=== PATIENT | female | born 1995 | race African-American/Black ===

== ENCOUNTER 2019-03-02 20:46 | Inpatient (IN) ==
[2019-03-02] MEDS ORDERED: ALBUTEROL NEB ONE (20:50)
[2019-03-02] MEDS ORDERED: MAGNESIUM SULFATE ONE (20:51)
[2019-03-02] MEDS ORDERED: DUONEB (A & A) ONE ×2 (20:51→21:26)
[2019-03-02] MEDS ORDERED: BRETHINE ONE (20:52)
[2019-03-02] MEDS ORDERED: MAGNESIUM SULFATE 2 GM/S.W.I. 2 GM/50 ML IVPB IV ONE (20:52)
[2019-03-02] MEDS ORDERED: DUONEB (A & A) INH ONE (20:53)
[2019-03-02] MEDS ORDERED: BRETHINE SUBQ ONE (20:54)
--- NOTE | 2019-03-02 21:50 | Diag Imaging Result Doc PS360 ---
EXAM: CHEST-PORTABLE 03/02/2019 HISTORY: SOB TECHNIQUE: Erect AP portable at 2126 COMMENT: There is no evidence of acute cardiac or pulmonary disease. Compared to 08/18/2018 there has been no significant change. IMPRESSION: No evidence of acute disease. Electronically signed by Jacobo Marinelli 03/02/2019 9:47 PM
[2019-03-02] MEDS ORDERED: SOLU-MEDROL IV ONE (21:54)
[2019-03-02] MEDS ORDERED: DUONEB (A & A) INH PRN (23:14)
[2019-03-02] MEDS ORDERED: LEVAQUIN 500 MG/D5W 500 MG/100 ML IVPB IV SCH (23:15)
[2019-03-02] MEDS: SOLU-MEDROL IV SCH (23:52)
[2019-03-03] MEDS ORDERED: TYLENOL PO PRN (01:30)
[2019-03-03] MEDS ORDERED: ZOFRAN ODT PO PRN (01:30)
[2019-03-03] MEDS: DUONEB (A & A) INH SCH ×2 (01:32→02:58)
[2019-03-03] MEDS ORDERED: PNEUMOVAX 23 IM ONE (02:08)
[2019-03-03] MEDS ORDERED: FLU VACCINE IM ONE (02:08)
[2019-03-03] MEDS ORDERED: DUONEB (A & A) INH SCH (03:30)
[2019-03-03 08:17] VITALS: BP 118/60
[2019-03-03] MEDS ORDERED: SALINE LOCK IV FLUID XX ONE (09:23)
[2019-03-03] MEDS ORDERED: ZOFRAN IV PRN (09:23)
[2019-03-03] MEDS ORDERED: LOVENOX SUBQ SCH (09:30)
[2019-03-03] MEDS ORDERED: PULMICORT INH SCH (09:30)
[2019-03-03] MEDS ORDERED: CLARITIN-D 12 HR PO SCH (09:30)
[2019-03-03] MEDS ORDERED: SINGULAIR PO SCH (09:30)
[2019-03-03] MEDS ORDERED: ROCEPHIN 1 GM in NS 50 ML IV SCH (09:30)
[2019-03-03] MEDS: SOLU-MEDROL IV SCH (10:40)
--- NOTE | 2019-03-03 12:07 | HISTORY AND PHYSICAL ---
PRIMARY CARE PROVIDER: FLORECITA Hernandez. CHIEF COMPLAINT: Shortness of breath. HISTORY OF PRESENT ILLNESS: Ms. Luzma Calderon is a 23-year-old female with complaints of shortness of breath, wheezing and asthma attack. 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 She has noticed that she has had at least used 3 Rescue inhalers within one month. She did have some congestion and sinus symptoms that she had Keflex filled on the . She continued all those antibiotics and said that actually cleared up, but she continues to have the wheezing and the asthma type symptoms. It got really bad yesterday to the point she felt like she just could not catch her breath. She came to [facility] [place] [facility] where she was admitted for asthma attack or acute asthmaticus. She was given nebulizer steroids, and she actually broke her attack and is breathing much better now. PAST MEDICAL HISTORY: 1. Asthma. 2. Six weeks . SURGICAL HISTORY: [facility] procedure in 2017. SOCIAL HISTORY: No tobacco. No alcohol. Quit marijuana last year. She has one son and says she is with [address] at 6 weeks . 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 FAMILY HISTORY: Mother's side of the family with diabetes and congestive heart failure. Father's side of the family with hypertension. ALLERGIES: No known drug allergies. HOME MEDICATIONS: 1. Albuterol inhaled p.r.n. 2. ProAir 2 puffs inhaled p.r.n. 3. Claritin-D 1 tablet p.o. every 12 hours. 4. She will go home with a Medrol Dosepak it looks like today. 5. Pulmicort 1 puff inhaled twice a day. 6. Singulair 10 mg p.o. daily. 7. She will probably go home with Symbicort as well 10.2 g inhaled. REVIEW OF SYSTEMS: Fourteen point review of systems are complete and all were negative, except for those mentioned above in HPI. PHYSICAL EXAMINATION: VITAL SIGNS: Temperature 98.3 degrees, heart rate 113, respiratory rate 20, blood pressure 118/60, O2 saturation 100% on room air. GENERAL: Ms. Luzma Calderon is a 23-year-old female. She is in no acute distress. She is able to answer questions appropriately. HEENT: Atraumatic, normocephalic. Pupils equal, round, reactive to light. Extraocular movements intact. Mucous membranes are dry. NECK: Trachea midline. CARDIOVASCULAR: S1, S2. Tachycardic rate and rhythm. No rubs, gallops, murmurs. No lower extremity edema. +2 dorsalis and radial pulses. Negative for JVD or carotid bruits. PULMONARY: Mild expiratory wheezes noted throughout. No accessory muscle use or work of breathing noted, tolerating room air. GI: Soft, nontender, nondistended. Positive bowel sounds x4. EXTREMITIES: Moves all extremities equally. Full range of motion. NEUROLOGIC: A and O x3. Follows commands. Sensory is intact. SKIN: Warm, dry, intact. LABORATORY DATA: No labs. IMAGING: Chest x-ray with no acute disease. ASSESSMENT AND PLAN: 1. Status asthmaticus, resolved with steroids, inhalers and nebulizers, and she will go home with that, something longer acting, along with her Rescue inhaler. This could be job-related, environment-related possible. 2. Six weeks . She will need to follow up with her FUR MATCHER on discharge. We will hold any medications that could be toxic to the unborn fetus. 3. Deep venous thrombosis prophylaxis. Sequential compression devices. Dictated by FLORECITA Jason for Tariq Narvaez MD cc: FLORECITA Jason MD
--- NOTE | 2019-03-03 12:17 | DISCHARGE SUMMARY ---
ADMISSION DATE: 03/02/2019 DISCHARGE DATE: 03/03/2019 ADMISSION DIAGNOSES: 1. Status asthmaticus, resolved. 2. Six weeks . DISCHARGE DIAGNOSES: 1. Status asthmaticus, resolved. 2. Six weeks . CONSULTATIONS: None. SURGERIES AND PROCEDURES: None. HOSPITAL COURSE: Ms. Luzma Calderon is a 23-year-old female who presented with complaints of shortness of breath and difficulties breathing, expiratory wheezes. She was treated with steroids, nebulizers, and oxygen and diagnosed with status asthmaticus, which resolved while she was here, and now she is off oxygen and she has improved quite a bit. She will be discharged home with a long-acting steroid inhaler, along with her rescue inhaler. DISCHARGE VITAL SIGNS: Temperature 98.3 degrees, heart rate 113, respiratory rate 20, blood pressure 118/60, and O2 saturation 100% on room air. DISCHARGE LABORATORY DATA: None. IMAGING STUDIES: She had a chest x-ray that is negative. DISCHARGE MEDICATIONS: 1. New medications include a Medrol Dosepak and a long-acting Symbicort 10.2 grams inhaled 160/4.5 mcg twice a day. 2. She will also need to continue with her ProAir. 3. Albuterol nebulizers p.r.n. 4. Claritin-D 1 tablet p.o. every 12 hours. 5. Singulair 10 mg p.o. daily. DISCHARGE FOLLOWUP: Primary care provider, FLORECITA Hernandez. DISCHARGE DIET: Regular. DISCHARGE ACTIVITY: As tolerated. DISCHARGE INSTRUCTIONS: If her condition changes, contact physician and/or return to the emergency department. Changes may include, but not limited to, shortness of breath, increased fatigue, excessive bleeding, unexplained weight loss or gain, unmanageable pain, signs or symptoms of infection. DISCHARGE DISPOSITION: Home. Dictated by FLORECITA Jason for Tariq Narvaez MD cc: FLORECITA Jason MD
--- NOTE | 2019-03-03 16:30 | HISTORY AND PHYSICAL ---
ADDENDUM: Patient seen and examined by myself. Full note dictated and discussed with nurse practitioner. Patient presented to the hospital with marked shortness of breath and wheezing. She was given several breathing treatments in the ER. Thankfully, her symptoms improved and therefore we will admit her to the floor instead of the ICU. cc: Tariq Narvaez MD
--- NOTE | 2019-03-03 16:54 | DISCHARGE SUMMARY ---
ADMISSION DATE: 03/02/2019 DISCHARGE DATE: 03/03/2019 DISCHARGE DIAGNOSES: 1. Acute asthma exacerbation. 2. Chemical exposure at work which likely contributed, if not caused, her acute asthma exacerbation. CONSULTATIONS: None. PROCEDURES: None. BRIEF HOSPITAL COURSE: The patient is a very pleasant 23-year-old female whose asthma symptoms seem to have completely resolved. She is improved. She is still having some shortness of breath, but nothing like the severe asthma attack she had in the ER. She was admitted to the hospital, had a heart rate 150s, respiratory at 40, saturation was 92%, all this has resolved. DISPOSITION: Patient will be discharged home. Discussed with her that she should start Symbicort twice daily to see if this will help. However, discussed with her that I fully believe she will need to look at changing job functions and not being around the inhalant chemical that she is being exposed to at work which has caused her to miss several days and to be treated several times including her most recent ER visit and hospitalization. Greater than 30 minutes was spent in total care. cc: Tariq Narvaez MD
--- NOTE | 2019-03-21 13:51 | PROVIDER DOCUMENTATION ---
This chart was entered by Brit Palma Scribe, acting as scribe for Colleen Vizcarra DO. HPI-Respiratory General - General Chief Complaint: Asthma Attack Stated Complaint: ASTHMA ATTACK Time Seen by Provider: 03/02/19 20:49 Source: patient Allergies/Adverse Reactions: Patient Allergies Allergy/AdvReac Type Severity Reaction Status Date / Time No Known Allergies Allergy Verified 03/02/19 21:52 Home Medications: Home Medication List Medication Instructions Recorded Confirmed Last Taken Type Albuterol [Albuterol Neb] 2.5 mg INH PRN PRN 07/09/17 03/02/19 Unknown History Budesonide Inhaler [Pulmicort 1 puff INH RTBID #1 inhaler 07/23/18 03/02/19 Unknown Rx Flexhaler] Montelukast Sodium [Singulair] 10 mg PO DAILY #30 tab 08/18/18 03/02/19 Unknown Rx Albuterol Sulfate [Proair Hfa] 2 puff INHALATION Q6HR #1 02/15/19 03/02/19 Unknown Rx [email or web address] Loratadine/Pse E.r. 12 Hr 1 ea PO Q12HR #20 tab 02/15/19 03/02/19 Unknown Rx [Claritin-D 12 Hr] Budesonide/Formoterol Fumarate 10.2 gm INHALATION BID #1 03/03/19 Unknown Rx [Symbicort 160-4.5 Mcg Inhaler] hfa.[email or web address] Methylprednisolone [Medrol Dosepak] 4 mg PO DIRECTED #1 pkg 03/03/19 Unknown Rx - History of Present Illness-Resp Nature of Presenting Problem: pt is a 23 yr old female presenting with respiratory distress onset 30min HOSPICE LIAISON, pt reports hx of asthma, became hot at work and began having asthma attack, pt reports inhaler used x 3 with no relief. On arrival she is in severe resp distress. 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 Severity in ED: reports: severe Onset/Duration: reports: 1/2 hour ago Timing: reports: getting worse Context: reports: other (became hot at work) Cough Quality/Degree: reports: no cough Episode Frequency: occasional episodes Current Respiratory Medication Therapy: Initiated albuterol/atrovent inhale (used x 3 without relief) Modifying Factors: improves with: exertion (worsens), albuterol inhaler (no relief) Associated Symptoms: reports: shortness of breath. denies: fever/chills, flu- like symptoms, nasal congestion Similar Symptoms Previously?: Yes Recently seen or treated by another doctor?: Yes Review of Systems - Adult - REVIEW OF SYSTEMS - ADULT Constitutional: denies: chills, fever Eyes: reports: no symptoms reported Ears, Nose, Mouth & Throat: denies: ear pain, sinus problem, throat pain Cardiovascular: denies: chest pain, palpitations, syncope Respiratory: reports: dyspnea on exertion, shortness of breath, wheezing Gastrointestinal: reports: no symptoms reported Genitourinary: reports: no symptoms reported Musculoskeletal: reports: no symptoms reported Integumentary: reports: no symptoms reported Neurological: reports: no symptoms reported Psychiatric: reports: no symptoms reported Endocrine: reports: no symptoms reported Hematologic/Lymphatic: reports: no symptoms reported Allergic/Immunologic: reports: no symptoms reported All Other Systems: Reviewed and Negative Past History - Adult - PAST MEDICAL HISTORY-ADULT Review of Records: reports: Old Records Reviewed, Nursing Assessment Review, Medications Reviewed Major Childhood Illnesses: reports: denies history Cardiovascular: reports: denies history Respiratory: reports: asthma Gastrointestinal: reports: denies history Obstetrical/Gynecological: reports: other (5 mos ) Genitourinary: reports: denies history Musculoskeletal: reports: denies history Neurological: reports: denies history Endocrine/Immune: reports: denies history Other Conditions: reports: denies history - PRIOR SURGERIES/PROCEDURES Surgical/Procedure History: reports: none - PRIOR HOSPITALIZATIONS Prior Hospitalizations: reports: none - IMMUNIZATION STATUS Childhood Immunizations: See Nurse Assessment Flu Vaccine: See Nurse Assessment - FAMILY HISTORY Family History: reviewed, not pertinent - SOCIAL HISTORY Smoking: non-smoker Physical Exam-General - PHYSICAL EXAM-ADULT Initial Vital Signs Reviewed: Yes - CONSTITUTIONAL General Appearance: alert, severe distress, anxious - EYES Eyes: PERRL/EOMI - HEAD, EARS, NOSE, MOUTH & THROAT HENMT: normocephalic/atraumatic, moist mucous membranes - NECK Neck: non-tender, full range of motion, supple, normal inspection - RESPIRATORY Respiratory: respiratory distress, decreased breath sounds, accessory muscle use , increased rate - CARDIOVASCULAR Cardiovascular: tachycardia - GASTROINTESTINAL (ABDOMEN) Abdominal Exam: normal bowel sounds, non tender, soft. negative: rebound - LYMPHATIC Lymphatic: no adenopathy - MUSCULOSKELETAL Back Exam: normal inspection Extremity: normal range of motion, non-tender, normal gait, normal inspection - SKIN Integumentary: normal color, normal turgor, warm/dry - NEUROLOGIC Neurologic: no motor/sensory deficits. negative: facial droop, focal weakness, motor weakness, sensory deficit - PSYCHIATRIC Psych/Mental Status: anxious Progress - PLAN OF CARE/RESULTS Progress/Plan/Lab Results: Marked resp distress on arrival. She received continuous nebs, terbutaline, magnesium and solumedrol. She had improvement of her symptoms, but was still diminished B on auscultation and had SOB and rest which was markedly worsened with any movement. Initially, ICU admission was considered, but no beds at were available. She eventually improved enough that she could be admitted to [facility] - XRAY 1 XRAY Study: Chest Impression: Normal ( Signed EXAM: CHEST-PORTABLE 03/02/2019 HISTORY: SOB TECHNIQUE: Erect AP portable at 2126 COMMENT: There is no evidence of acute cardiac or pulmonary disease. Compared to 08/18/2018 there has been no significant change. IMPRESSION: No evidence of acute disease. Electronically signed by Jacobo Marinelli 03/02/2019 9:47 PM [id number]/02/192146 Interpreting Physician: Jacobo Marinelli MD Dictated Date/Time: 03/02/192146 cc: Colleen Vizcarra DO; Caren Villagran) Comparison with other Films: no changes (08/18/18) Departure - Departure Date of Disposition Decision: 03/02/19 Time of Disposition Decision: 23:45 DIAGNOSIS: Asthma exacerbation Qualifiers: Asthma severity: severe Asthma persistence: unspecified Qualified Code(s): J45.901 - Unspecified asthma with (acute) exacerbation Disposition: ADMITTED INPATIENT 09 Certified Medical Emergency: Emergent Condition: Fair - Critical Care Note This patient required my direct & personal management of CC.: Yes Total Time (mins): 32 Critical Care Statement: This patient required my direct personal management to treat or rule out processes, the absence of which, could potentiallly result in sudden, clinically significant life or limb threatening deterioration. Attestation - Physician/ SANTIAGO Attestation The physician spent face to face time with patient:: Yes Advanced Practice Provider documentation review:: Supervising physician onsite and consulted in the evaluation and care of this patient. The physician did have a face to face encounter with the patient. This chart was documented by the indicated scribe, (Brit Palma Scribe) and accurately reflects the services I performed and decisions made by me, Colleen Vizcarra DO, as attested by the provider's signature.
== END 2019-03-03 11:34 | disposition home or self-care (01) | DRG 832 ==
LOC: P.ED 20:46 → 2N 23:09
PROVIDERS: ATTEND Family Medicine